=== PATIENT | female | born 1980 | race Caucasian/White ===

== ENCOUNTER 2024-09-28 16:26 | Emergency (ER) | payer OTHER ==
[2024-09-28] MEDS: Bacitracin Oint 1 GM U/D Packet TOP ONE (17:45)
[2024-09-28] MEDS: Take Home: oxyCODONE HCl 5 MG Tab, 5 Tab Pack PO ONE (17:48)
== END 2024-09-28 17:45 | disposition home or self-care (01) ==
LOC: LL.ED 16:26
DX: S61.412A Laceration without foreign body of left hand, initial encounter (principal); J45.909 Unspecified asthma, uncomplicated; Z91.013 Allergy to seafood; Z79.51 Long term (current) use of inhaled steroids; Z79.899 Other long term (current) drug therapy; Z79.84 Long term (current) use of oral hypoglycemic drugs; Z90.49 Acquired absence of other specified parts of digestive tract; W26.8XXA Contact with other sharp object(s), not elsewhere classified, initial encounter; Y93.89 Activity, other specified
CPT/HCPCS: 12032; 73130; 99283; A9270; J2003